=== PATIENT | female | born 1940 | race Caucasian/White ===

== ENCOUNTER → 2016-11-27 | Outpatient (CLI) | payer MEDICARE ==
--- NOTE | 2016-11-27 11:04 | RADIOLOGY REPORT PS360 ---
BONE DENSITOMETRY(HIP:LT SPINE HISTORY: OSTEOPENIA ORDERING PHYSICIAN: Mónica Lane MD PATIENT AGE: 76 years COMPARISON: 12/22/2011 FINDINGS: The BMD measured at the left femoral neck is 0.717 g/cm squared with a T score of -2.3. This is considered Osteopenic according to the World Health Organization criteria. Fracture risk is Moderate. Treatment is advised. There is been overall 2.7% decrease in the density of the hips compared to the previous exam IMPRESSION: Osteopenia. Recommend pelvic exam November 2018
--- NOTE | 2016-12-04 14:17 | RADIOLOGY REPORT PS360 ---
DIG DIG MAMM-SCREEN IMPLANT W/CAD ORDERING PHYSICIAN : Mónica Lane MD PATIENT AGE: 76 years GENDER: Female COMPARISON: Previous mammograms: May 2012 with breast implants / July 2010 prior to breast implant INDICATION: Routine screening 76-year-old w/ bilateral breast implants July 2010 . Sister with breast cancer TECHNIQUE: Mary technique utilized for bilateral breast implants . With this CC and MLO images of breast tissue anterior to the implant as well as entire breast including implant were obtained bilateral. R2 CAD reviewed. FINDINGS: Moderately dense inhomogeneous breast tissue bilaterally particularly for this age patient.. No exogenous hormones listed on history sheet. This inhomogeneous moderate dense breast tissue pattern along with breast implants decreases sensitivity of mammography. RIGHT BREAST: Appears overall stable with no significant new findings. Fibroglandular tissue is most evident towards upper-outer quadrant and appears fairly stable. Scattered benign calcifications. LEFT BREAST: There are 2 small 6 mm nodular densities at the medial left breast. These are likely present before but are more evident today likely cyst or fibroadenoma. Suggest ultrasound left breast to further evaluate these features as well as area discussed below. . Moderate density at the inferior left breast I believe was present on 2011 study Given these features I would suggest MLO and 90 degree spot view of the the more inferior portion of the left breast. Slight rolled cc view preimplant may be obtained as well to further evaluate what I believe is merely glandular tissue at this latter area. IMPRESSION: LEFT BREAST.: -There are 2 small 6 mm nodular densities at the medial breast most likely are stable features but is more apparent on today's images. Suspect small cyst or possible fibroadenoma Suggest ultrasound to further evaluate these areas as well survey dense inhomogeneous breast tissue on the left. -Most likely glandular density accentuated by projection/summation shadow, is seen at deep inferior breast overlying breast implant. Additional spot views suggested here as outlined above RIGHT BREAST: No significant change. Dense breasts tissue overlying implant. BI-RADS CATEGORY: 0_Incomplete: Need additional imaging. RECOMMENDED FOLLOWUP: ADD ADDITIONAL IMAGING left breast cautious Spot views & ultrasound suggested (A letter has been sent to the patient regarding results of the study.)
== END ==
LOC: RAD 09:52
DX: M85.851 Other specified disorders of bone density and structure, right thigh (principal); Z13.820 Encounter for screening for osteoporosis; Z12.31 Encounter for screening mammogram for malignant neoplasm of breast
CPT/HCPCS: G0202

== ENCOUNTER → 2016-12-26 | Outpatient (CLI) | payer MEDICARE ==
--- NOTE | 2017-01-02 16:32 | RADIOLOGY REPORT PS360 ---
DIG MAMM-DX ALEKSANDRA W/CAD LEFT BREAST ULTRASOUND WITH AXILLA COMPARISON: None INDICATION: Palpable nodule left breast ORDERING PHYSICIAN: Cody Melendez MD PATIENT AGE: 37 years TECHNIQUE: Routine images performed along with spot compression views and left breast ultrasound FINDINGS: There is average fibroglandular tissue. Right breast: Asymmetric density is present in the deep right breast which does appear to compress out as fibroglandular tissue. No discrete mass or malignant appearing microcalcification. Left breast: Palpable abnormality as reported in the 1-2 o'clock region. A marker is placed in this area. No distinct mammographic abnormality in this area. No malignant appearing mass or malignant appearing microcalcification. Left breast ultrasound: No sonographic abnormality detected. Specifically, no cystic or solid lesions evident. IMPRESSION: No evidence of malignancy BI-RADS CATEGORY: 2_Benign RECOMMENDED FOLLOWUP: As clinically warranted. Negative mammogram and negative ultrasound does not exclude the possibility of malignancy. Any palpable lesion should be managed on clinical basis. (A letter has been sent to the patient regarding results of the study.)
--- NOTE | 2017-01-02 17:12 | RADIOLOGY REPORT PS360 ---
DIG MAMM-DX UNI A/VWS-LT W/CAD Left Breast Ultrasound With Axilla COMPARISON: 11/27/16 and 05/13/2012 INDICATION: Follow-up abnormal mammogram ORDERING PHYSICIAN: Leonidas Mercer MD PATIENT AGE: 76 years TECHNIQUE: Spot compression views of along with rolled views and left breast ultrasound FINDINGS: Spot compression views show persistent nodular density in the medial aspect of the right breast which appears fairly well-circumscribed measuring 8 mm. This is not well delineated on the MLO view. Left breast ultrasound: There is a cyst measuring 6 x 4 mm at the 8:00 region near the nipple likely corresponding to the mammographic abnormality. IMPRESSION: Benign findings. Mammographic abdomen only corresponds to a cyst BI-RADS CATEGORY: 2_Benign RECOMMENDED FOLLOWUP: Annual screening mammogram (A letter has been sent to the patient regarding results of the study.)
== END ==
LOC: RAD 12:43
DX: R92.8 Other abnormal and inconclusive findings on diagnostic imaging of breast (principal)
CPT/HCPCS: G0206-LT

== ENCOUNTER → 2017-01-28 | Outpatient (CLI) | payer MEDICARE ==
--- NOTE | 2017-02-02 08:20 | CARDIOVASCULAR REPORT ---
"Venous Exam Indications: 729.5 Pain in limb. IMPRESSIONS No evidence of deep or superficial vein thrombosis involving the left lower extremity History: Left lower extremity pain. Swelling of the left lower extremity. Left lower extremity venous duplex evaluation. Doppler flow study including spectral analysis, color and galloway scale imaging. Location: Vascular laboratory. Patient status: Outpatient. CRITICAL FINDINGS - Reported to: Paty Acosta [facility] - Read back and verified. - 01/28/17 - 17:25 - LLE negative for DVT or SVT Incidental findings: A rupturedBaker's cyst is noted incidentally on the left. Tables: Venous flow and imaging: + +-------+ + |Location |Overall|Flow properties | + +-------+ + |Left common femoral |Patent |Normal phasicity; spontaneous; | | | |normal augmentation; compressible | + +-------+ + |Left saphenofemoral junction|Patent |Compressible | + +-------+ + |Left profunda femoral |Patent |Compressible | + +-------+ + |Left femoral |Patent |Normal phasicity; spontaneous; | | | |normal augmentation; compressible | + +-------+ + |Left greater saphenous |Patent |Normal phasicity; spontaneous; | | | |normal augmentation; compressible | + +-------+ + |Left popliteal |Patent |Normal phasicity; spontaneous; | | | |normal augmentation; compressible | + +-------+ + |Left posterior tibial |Patent |Compressible | + +-------+ + |Left peroneal |Patent |Compressible | + +-------+ + |Left gastrocnemius |Patent |Compressible | + +-------+ + |Left soleal |Patent |Compressible | + +-------+ + (Report amended ) Electronically signed by: Jens Hendrix [id number]"
== END ==
LOC: RAD 16:48
DX: R60.0 Localized edema (principal); M79.605 Pain in left leg